=== PATIENT | male | born 1965 | race Caucasian/White ===

== ENCOUNTER → 2017-05-16 08:51 | Outpatient (CLI) | payer BC, SELFPAY ==
[2017-05-16 09:23] LABS: Basophils % 0.5 % (0.1-2.0); Eosinophils # 0.1 K/mm3 (0.0-0.4); Hematocrit 45.4 % (42.0-52.0); Hemoglobin 15.4 g/dL (14.1-18.0); Lymphocytes # 1.7 K/mm3 (0.7-4.5); Lymphocytes % 28.1 K/mm3 (10-50); Mean Corpuscular HGB Conc 33.8 g/dL (31.8-35.4); Mean Corpuscular Hemoglobin 30.1 pg (27.0-31.2); Mean Platelet Volume 6.9 fl (7.4-10.4); Monocytes # 0.4 K/mm3 (0.1-1.0); Monocytes % 7.3 % (1.7-9.3); Neutrophils # 3.7 K/mm3 (1.8-7.8); Platelet Count 270 K/mm3 (142-424); Red Blood Count 5.11 M/mm3 (4.60-6.20); Red Cell Distribution Width 12.6 % (11.5-17.5); White Blood Count 5.9 K/mm3 (4.8-10.8)
[2017-05-16 09:58] LABS: Alanine Aminotransferase 56 U/L (12-78); Albumin/Globulin Ratio 1.1 (1.1-1.8); Alkaline Phosphatase 116 U/L (46-116); Aspartate Amino Transferase 29 U/L (15-37); Bilirubin,Total 0.7 mg/dL (0.2-1.0); Blood Urea Nitrogen 12 mg/dL (7-18); Carbon Dioxide 26 mmol/L (21.0-32.0); Chloride 106 mmol/L (98-107); Chol/HDL Ratio 4.1 (1-3.5); Cholesterol 151 mg/dL (140-200); Creatinine,Serum 0.81 mg/dL (0.70-1.30); Estimated Glomerular Filt Rate 101 ml/min (>60); GFR (African American) 122 ML/MIN (>60); Globulin 3.5 gm/dl (1.3-3.2); Glucose 99 mg/dL (74-106); HDL Cholesterol 37 mg/dL (27-67); LDL Cholesterol 90 mg/dL (0-130); Sodium 141 mmol/L (136-145); Total Protein,Serum 7.5 gm/dL (6.4-8.2); Triglycerides 118 mg/dL (30-200); VLDL Cholesterol 24 mg/dL (0-40)
== END ==
PROVIDERS: Visit Provider Internal Medicine Adolescent Medicine
DX: R97.20 Elevated prostate specific antigen [PSA] (principal); Z12.5 Encounter for screening for malignant neoplasm of prostate; E78.00 Pure hypercholesterolemia, unspecified; I25.10 Atherosclerotic heart disease of native coronary artery without angina pectoris
CPT/HCPCS: 36415; 80053; 80061; 85025; G0103

== ENCOUNTER → 2017-10-03 07:21 | Outpatient (CLI) | payer BC, SELFPAY ==
[2017-10-03 07:48] LABS: Basophils % 0.6 % (0.1-2.0); Eosinophils # 0.1 K/mm3 (0.0-0.4); Eosinophils % 2.1 % (0.1-12.0); Hematocrit 46.9 % (42.0-52.0); Hemoglobin 15.9 g/dL (14.1-18.0); Lymphocytes # 1.7 K/mm3 (0.7-4.5); Lymphocytes % 26.3 K/mm3 (10-50); Mean Corpuscular HGB Conc 33.9 g/dL (31.8-35.4); Mean Corpuscular Hemoglobin 30.7 pg (27.0-31.2); Mean Corpuscular Volume 90.6 fl (80-94); Mean Platelet Volume 6.5 fl (7.4-10.4); Monocytes # 0.5 K/mm3 (0.1-1.0); Neutrophils # 4.1 K/mm3 (1.8-7.8); Platelet Count 295 K/mm3 (142-424); Red Blood Count 5.18 M/mm3 (4.60-6.20); Red Cell Distribution Width 12.8 % (11.5-17.5); White Blood Count 6.5 K/mm3 (4.8-10.8)
[2017-10-03 09:40] LABS: Anion Gap 7.4 mEq/L (5-15); Blood Urea Nitrogen 16 mg/dL (7-18); Calcium 9.4 mg/dL (8.5-10.1); Carbon Dioxide 32 mmol/L (21.0-32.0); Chloride 106 mmol/L (98-107); Chol/HDL Ratio 4.2 (1-3.5); Cholesterol 164 mg/dL (140-200); Creatinine,Serum 0.96 mg/dL (0.70-1.30); Estimated Glomerular Filt Rate 83 ml/min (>60); GFR (African American) 100 ML/MIN (>60); Glucose 97 mg/dL (74-106); HDL Cholesterol 39 mg/dL (27-67); LDL Cholesterol 97 mg/dL (0-130); Potassium 4.4 mmoL/L (3.5-5.1); Sodium 141 mmol/L (136-145); Triglycerides 140 mg/dL (30-200); VLDL Cholesterol 28 mg/dL (0-40)
== END ==
PROVIDERS: Visit Provider Internal Medicine Cardiovascular Disease
DX: R94.39 Abnormal result of other cardiovascular function study (principal)
CPT/HCPCS: 36415; 80048; 80061; 85025

== ENCOUNTER → 2017-11-22 07:56 | Outpatient (CLI) | payer BC, SELFPAY ==
--- NOTE | 2017-11-22 08:02 | MR_ITS ---
MR lumbar spine wo con, MR 3-d myelogram/MRCP HISTORY: PT states low back pain, RT leg pain, numbness and tingling X 8 months. ITS.REASON: ACUTE RIGHT-SIDED LOW BACK PAIN W/RIGHT-SIDED SCIATICA ORDERING PHYSICIAN: Sudhakar Aguilar MD PATIENT AGE: 52 years Comparison: None TECHNIQUE: Standard multiplanar multiecho sequences are performed without contrast. 3-D MIP and myelographic images are also rendered and reviewed FINDINGS: The spinal cord ends at the T12 level. T12-L1: Unremarkable. L1-L2: Small left foraminal disc protrusion with mild left lateral recess narrowing and left-sided foraminal narrowing. L2-L3: Degenerative disc disease with moderate concentric bulging disc with minimal left paracentral disc protrusion along with facet and ligamentum flavum hypertrophy causing bilateral lateral recess narrowing and moderate left-sided foraminal narrowing. The lateral recess narrowing is somewhat more prominent on the left. The bulging disc is abutting the anterior aspect of the L3 nerve roots greater on the left. Type I endplate changes are present posteriorly L3-L4: Mild degenerative disc disease with mild concentric bulging disc along with facet and ligamentum flavum hypertrophy with mild bilateral foraminal narrowing L4-L5: Mild facet and ligamentum hypertrophic change. L5-S1: Grade 1 spondylolytic spondylolisthesis with 7 mm anterolisthesis of L5 with bulging disc along with hypertrophic changes at the spondylitic areas. There is severe bilateral foraminal narrowing. No extruded herniated disc evident. IMPRESSION: 1. Multilevel lumbar spondylosis with degenerative disc disease, facet and ligamentum hypertrophy, and bulging disc with resultant foraminal and lateral recess narrowing. Please see above for detailed description at each level. 2. Moderate size bulging disc at L2-L3 with minimal broad-based left paracentral disc protrusion and moderate left-sided lateral recess and foraminal narrowing and mild right lateral recess and foraminal narrowing. 3. Grade 1 spondylolytic spondylolisthesis of L5 on S1 with severe bilateral foraminal narrowing
== END ==
PROVIDERS: Family Provider Internal Medicine Adolescent Medicine; PCP Internal Medicine Adolescent Medicine; Visit Provider Internal Medicine Adolescent Medicine
DX: M54.41 Lumbago with sciatica, right side (principal)
CPT/HCPCS: 72148; 76376

== ENCOUNTER 2018-06-06 08:30 | Outpatient (RCR) | payer BC, SELFPAY | END 2018-06-06 08:35 | disposition home or self-care (01) | LOC: PT 08:30 | PROVIDERS: Visit Provider Neurological Surgery | DX: M54.5 Low back pain (principal) | CPT/HCPCS: 97010; 97014; 97110; 97163; 97164; G0283 ==

== ENCOUNTER → 2018-10-18 07:07 | Outpatient (CLI) | payer BC, SELFPAY ==
[2018-10-18 08:01] LABS: Basophils % 0.6 % (0.1-2.0); Eosinophils # 0.1 K/mm3 (0.0-0.4); Eosinophils % 2.1 % (0.1-12.0); Hematocrit 44.6 % (42.0-52.0); Hemoglobin 15.3 g/dL (14.1-18.0); Lymphocytes % 33.6 % (10-50); Mean Corpuscular HGB Conc 34.3 g/dL (31.8-35.4); Mean Corpuscular Hemoglobin 31.4 pg (27.0-31.2); Mean Corpuscular Volume 91.6 fl (80-94); Mean Platelet Volume 6.6 fl (7.4-10.4); Monocytes # 0.5 K/mm3 (0.1-1.0); Neutrophils # 3.3 K/mm3 (1.8-7.8); Neutrophils % 55.7 % (37.0-80.0); Platelet Count 297 K/mm3 (142-424); Red Blood Count 4.87 M/mm3 (4.60-6.20); Red Cell Distribution Width 13.1 % (11.5-17.5); White Blood Count 5.8 K/mm3 (4.8-10.8)
[2018-10-18 08:13] LABS: Alanine Aminotransferase 51 U/L (12-78); Albumin Level 3.8 gm/dL (3.4-5.0); Alkaline Phosphatase 135 U/L (46-116); Anion Gap 11.5 mEq/L (5-15); Aspartate Amino Transferase 27 U/L (15-37); Bilirubin,Total 0.3 mg/dL (0.2-1.0); Blood Urea Nitrogen 13 mg/dL (7-18); Calcium 8.8 mg/dL (8.5-10.1); Carbon Dioxide 29 mmol/L (21.0-32.0); Chloride 105 mmol/L (98-107); Chol/HDL Ratio 4.2 (1-3.5); Cholesterol 137 mg/dL (140-200); Creatinine,Serum 1.03 mg/dL (0.70-1.30); Estimated Glomerular Filt Rate 76 ml/min (>60); GFR (African American) 92 ML/MIN (>60); Globulin 3.7 gm/dl (1.3-3.2); Glucose 96 mg/dL (74-106); HDL Cholesterol 33 mg/dL (27-67); LDL Cholesterol 79 mg/dL (0-130); Potassium 3.5 mmoL/L (3.5-5.1); Prostate Specific Ag, Diagnost 0.81 ng/mL (0.0-4.0); Sodium 142 mmol/L (136-145); Total Protein,Serum 7.5 gm/dL (6.4-8.2); Triglycerides 123 mg/dL (30-200); VLDL Cholesterol 25 mg/dL (0-40)
== END ==
PROVIDERS: Visit Provider Internal Medicine Adolescent Medicine
DX: E78.5 Hyperlipidemia, unspecified (principal); I25.10 Atherosclerotic heart disease of native coronary artery without angina pectoris; R97.20 Elevated prostate specific antigen [PSA]
CPT/HCPCS: 36415; 80053; 80061; 84153; 85025

== ENCOUNTER → 2019-10-03 08:06 | Outpatient (CLI) | payer BC, SELFPAY ==
[2019-10-03 08:45] LABS: Basophils # 0.1 K/mm3 (0-0.2); Basophils % 0.8 % (0.1-2.0); Eosinophils # 0.1 K/mm3 (0.0-0.4); Eosinophils % 1.7 % (0.1-12.0); Hematocrit 44.2 % (42.0-52.0); Hemoglobin 15.4 g/dL (14.1-18.0); Lymphocytes # 1.6 K/mm3 (0.7-4.5); Lymphocytes % 26.5 % (10-50); Mean Corpuscular HGB Conc 34.8 g/dL (31.8-35.4); Mean Corpuscular Volume 92.1 fl (80-94); Mean Platelet Volume 7.5 fl (7.4-10.4); Monocytes # 0.4 K/mm3 (0.1-1.0); Neutrophils # 3.9 K/mm3 (1.8-7.8); Platelet Count 252 K/mm3 (142-424); Red Cell Distribution Width 12.9 % (11.5-17.5)
[2019-10-03 09:38] LABS: Alanine Aminotransferase 32 U/L (12-78); Albumin Level 4.5 g/dl (3.5-5.0); Albumin/Globulin Ratio 1.6 (1.1-1.8); Alkaline Phosphatase 128 U/L (38-126); Anion Gap 14.1 mEq/L (5-15); Aspartate Amino Transferase 33 U/L (17-59); Blood Urea Nitrogen 17 mg/dl (9-20); Calcium 9.6 mg/dl (8.4-10.2); Carbon Dioxide 28 mmol/L (22.0-30.0); Chloride 102 mmol/L (98-107); Chol/HDL Ratio 3.7 (1-3.5); Cholesterol 163 mg/dl (140-200); Estimated Glomerular Filt Rate 102 ml/min (>60); GFR (African American) 123 ML/MIN (>60); Globulin 2.8 g/dL (1.3-3.2); Glucose 96 mg/dl (74-100); HDL Cholesterol 44 mg/dl (40-60); Potassium 4.1 mmoL/L (3.5-5.1); Sodium 140 mmol/L (136-145); Total Protein,Serum 7.3 g/dl (6.3-8.2); Triglycerides 185 mg/dl (30-150); VLDL Cholesterol 37 mg/dL (0-40)
[2019-10-03 09:49] LABS: Direct LDL Cholesterol 95.41 mg/dL (100-129)
[2019-10-03 10:08] LABS: Prostate Specific Ag, Diagnost 0.882 ng/ml (0.0-4.0)
== END ==
PROVIDERS: Visit Provider Internal Medicine Adolescent Medicine
DX: I25.10 Atherosclerotic heart disease of native coronary artery without angina pectoris (principal); R97.20 Elevated prostate specific antigen [PSA]
CPT/HCPCS: 36415; 80053; 80061; 84153; 85025

== ENCOUNTER → 2020-01-20 07:19 | Outpatient (CLI) | payer BC, SELFPAY ==
[2020-01-20 09:41] LABS: Chloride 104 mmol/L (98-107); Sodium 140 mmol/L (136-145)
[2020-01-20 09:42] LABS: Potassium 4.5 mmoL/L (3.5-5.1)
[2020-01-20 09:44] LABS: Alanine Aminotransferase 30 U/L (12-78); Albumin Level 4.6 g/dl (3.5-5.0); Albumin/Globulin Ratio 1.6 (1.1-1.8); Alkaline Phosphatase 118 U/L (38-126); Anion Gap 10.5 mEq/L (5-15); Aspartate Amino Transferase 32 U/L (17-59); Bilirubin,Total 0.3 mg/dl (0.2-1.3); Blood Urea Nitrogen 16 mg/dl (9-20); Calcium 9.5 mg/dl (8.4-10.2); Carbon Dioxide 30 mmol/L (22.0-30.0); Cholesterol 175 mg/dl (140-200); Estimated Glomerular Filt Rate 78 ml/min (>60); GFR (African American) 95 ML/MIN (>60); Globulin 2.8 g/dL (1.3-3.2); Glucose 95 mg/dl (74-100); Total Protein,Serum 7.4 g/dl (6.3-8.2); Triglycerides 139 mg/dl (30-150); VLDL Cholesterol 28 mg/dL (0-40)
[2020-01-20 09:45] LABS: Chol/HDL Ratio 3.9 (1-3.5); HDL Cholesterol 45 mg/dl (40-60)
[2020-01-20 09:56] LABS: Direct LDL Cholesterol 104.04 mg/dL (100-129)
== END ==
PROVIDERS: Visit Provider Internal Medicine Cardiovascular Disease
DX: E78.5 Hyperlipidemia, unspecified (principal)
CPT/HCPCS: 36415; 80053; 80061

== ENCOUNTER → 2020-09-28 13:40 | Outpatient (CLI) | payer BC, SELFPAY ==
--- NOTE | 2020-09-28 13:52 | MR_ITS ---
PROCEDURE: MR SHOULDER RT WO CON CLINICAL INDICATION: RT SHOULDER PAIN COMPARISON: No exams were available for comparison TECHNIQUE: Routine multiplanar multi echo sequences are performed without gadolinium enhancement. FINDINGS: Hypertrophic changes are present at the acromioclavicular joint. There is mild subacromial stenosis. Mild edema noted at the AC joint. There is thickening with increased T2 signal at the supraspinatus and infraspinatus tendons consistent with tendinopathy/tendinosis. Focal decreased T2 signal noted along the superior aspect of the supraspinatus tendon distally suggesting calcific tendinitis. The subscapularis and teres minor tendons are intact. There is some thickening of the subscapularis tendon distally. The bicipital tendon is in place. No obvious labral tear. There is increased T2 signal within the anterior aspect of the deltoid muscle/clavicular part. IMPRESSION: 1. Tendinopathy/tendinosis of the supraspinatus, infraspinatus, and subscapularis muscles. There is mild subacromial stenosis with hypertrophic changes of the acromioclavicular joint and suspected calcific tendinitis.. 2. No evidence of rotator cuff tear. 3. Edema within the clavicular part of the deltoid muscle. This could be seen with partial muscle tear. Please correlate with clinical findings. Dictated by: Hadley Cody MD 09/28/2020 18:15 Hadley Cody MD in [place] 09/28/2020 18:15
== END ==
PROVIDERS: PCP Internal Medicine Adolescent Medicine; Visit Provider Nurse Practitioner Family
DX: M25.511 Pain in right shoulder (principal); G89.11 Acute pain due to trauma
CPT/HCPCS: 73221

== ENCOUNTER 2020-11-29 08:00 | Outpatient (RCR) | payer BC, SELFPAY | END 2020-11-29 08:05 | disposition home or self-care (01) | LOC: OT 08:00 | PROVIDERS: Visit Provider Orthopaedic Surgery Sports Medicine | DX: M75.111 Incomplete rotator cuff tear or rupture of right shoulder, not specified as traumatic (principal); M75.31 Calcific tendinitis of right shoulder | CPT/HCPCS: 97014; 97110; 97164; 97166; 97530; G0283 ==

== ENCOUNTER → 2021-03-07 14:36 | Outpatient (CLI) | payer BC, SELFPAY | PROVIDERS: PCP Radiology Diagnostic Radiology; Visit Provider Nurse Practitioner | DX: Z20.822 Contact with and (suspected) exposure to COVID-19 (principal) | CPT/HCPCS: C9803; U0003; U0005 ==

== ENCOUNTER 2021-03-11 18:04 | Emergency (ER) | payer BC, SELFPAY ==
[2021-03-11 19:15] VITALS: BP 141/92; PULSE 83; RESP 18; TEMP 36.9; O2SAT 98; BMI 29.9
[2021-03-11 19:26] LABS: UTC Influenza A Antigen Negative (Negative); UTC Influenza B Antigen Negative (Negative)
--- NOTE | 2021-03-11 19:41 | HMH.EDUTC ---
[facility] [place] Disposition Clinical Impression: Viral syndrome Disposition: Home, Self-Care Condition on Discharge: Good Instructions: DI for Viral Syndrome, DI for Fever (Symptom) -- Adult Additional Instructions: *Monitor Temp, Over the counter Motrin or Tylenol as directed/as needed Tylenol every 4 hours and Motrin every 6 hours (as long as your family doctor has told you that you can take it) for fever or pain. and straight to ER if unable to lower temp less than 101.0 after medication given *Warm salt water gargles may help to soothe the throat *Throat Lozenges *Warm fluids like tea with honey may help to soothe the throat *Sleep elevated *Humidifier/Vaporizer *Flonase 2 sprays in each nostril daily but be aware that it may take 2-3 days before you notice improvement Follow up IMMEDIATELY for new or worsening symptoms or no Noticeable improvement over the next 48-72 hours. 911 for difficulty breathing or swallowing You were tested for today for COVID19 your test result should be back in the next 24-48 hours, you may check your results on the [facility] My Health Portal if you have trouble logging on you may call You was given a handout with instructions for Self Quarantine and Self isolation for while you wait on test results and what to do if they are positive If you are positive the Health Dept will be contacting you also Make sure to take your Vitamins Vit. C Vit D and Zinc if you can take them Prescriptions: Benzonatate [Benzonatate 100mg cap] 100 mg PO Q8HP PRN #15 cap PRN Reason: Cough Transmission Status: Pending to [facility] Fluticasone Propionate [Flonase 50mcg nasal spray 16gm] 1 spr NS DAILY #1 each Transmission Status: Pending to [facility] Referrals: Sudhakar Aguilar MD [Primary Care Provider] - As needed Forms: Work/School Release Time of Disposition: 19:51 Medical Decision Making - Leo Inquiry Pt receiving controlled substance: No Leo was queried for this patient: No Vital Signs: 03/11/21 19:15 Temperature 98.5 F Temperature Source Oral Pulse Rate [Right Brachial] 83 Respiratory Rate 18 Blood Pressure [Right Arm] 141/92 H Blood Pressure Mean [Right Arm] 108 Blood Pressure Source [Right Arm] Automatic Cuff Blood Pressure Position [Right Arm] Sitting 02 Sat by Pulse Oximetry 98 Oxygen Delivery Method Room Air - Lab Data Lab results reviewed: Yes: I reviewed the patient's lab results. Lab Results 03/11/21 19:17: Influenza Type A Ag Negative, Influenza Type B Ag Negative Orders (Tests/Meds): ORDERS Category Date Time Status Covid-19 Nasal PCR ([facility]) Routine Lab 03/11/21 19:20 Received [facility] [place] HPI - General Stated complaint: sore throat, headache,nasal drainage Time Seen by Provider: 03/11/21 19:41 Mode of Arrival: Ambulatory Source of Information: Patient Limitations: No Limitations Description of Symptoms (Recalled from Triage Doc. by RN): PATIENT C/O BODY ACHES, CHILLS, AND HEADACHE SINCE YESTERDAY HEENT Symptoms (Recalled from RN notes): Yes Resp Symptoms (Recalled from RN notes): No Skin Symptoms (Recalled from RN notes): No MS Symptoms (Recalled from RN notes): No Functional Status (Recalled from RN notes): WNL - History of Present Illness Provider Complaint: Patient states that he started feeling bad yesterday States that he has been having body aches, chills, drainage and cough State that he took some nyquil last night and it helped with the cough but today he has still been feeling achy and having some drainage so he came in to get checked State that he feels like he has the flu - Related Data Home Medications Medication Instructions Recorded Confirmed atorvastatin 80 mg tablet 80 mg PO DAILY #90 tab 07/27/18 02/02/20 gabapentin 300 mg capsule 300 mg PO DAILY #90 cap 07/27/18 02/02/20 hydrochlorothiazide 25 mg tablet 10 mg PO DAILY #90 tab 07/27/18 02/02/20 metoprolol succinate 25 mg 25 mg PO DAILY #30 tab 07/27/18 02/02/20 tablet,exten
[2021-03-11 19:50] VITALS: BP 141/92; PULSE 83; RESP 18; TEMP 36.9; O2SAT 98
== END 2021-03-11 19:55 | disposition home or self-care (01) ==
PROVIDERS: Emergency Provider Nurse Practitioner; PCP Internal Medicine Adolescent Medicine
DX: U07.1 COVID-19 (principal); B34.9 Viral infection, unspecified; I10 Essential (primary) hypertension; I25.10 Atherosclerotic heart disease of native coronary artery without angina pectoris; E78.5 Hyperlipidemia, unspecified; Z79.899 Other long term (current) drug therapy
CPT/HCPCS: 87804; 99202; C9803; G0463; U0003; U0005

== ENCOUNTER → 2022-05-10 08:29 | Outpatient (CLI) | payer BC, SELFPAY ==
[2022-05-10 09:02] LABS: Basophils # 0.1 K/mm3 (0-0.2); Eosinophils # 0.1 K/mm3 (0.0-0.4); Eosinophils % 1.7 % (0.1-12.0); Hematocrit 43.4 % (42.0-52.0); Hemoglobin 14.8 g/dL (14.1-18.0); Lymphocytes # 1.4 K/mm3 (0.7-4.5); Lymphocytes % 24.6 % (10-50); Mean Corpuscular HGB Conc 34.2 g/dL (31.8-35.4); Mean Corpuscular Hemoglobin 31.6 pg (27.0-31.2); Mean Corpuscular Volume 92.2 fl (80-94); Mean Platelet Volume 7.3 fl (7.4-10.4); Monocytes # 0.6 K/mm3 (0.1-1.0); Neutrophils # 3.6 K/mm3 (1.8-7.8); Neutrophils % 62.7 % (37.0-80.0); Platelet Count 257 K/mm3 (142-424); Red Cell Distribution Width 13.3 % (11.5-17.5); White Blood Count 5.7 K/mm3 (4.8-10.8)
[2022-05-10 09:43] LABS: NT Pro Brain Natriuretic Pep. 35.2 pg/mL (0-125)
[2022-05-10 09:44] LABS: Alanine Aminotransferase 32 U/L (12-78); Albumin Level 4.3 g/dl (3.5-5.0); Alkaline Phosphatase 135 U/L (38-126); Anion Gap 9.2 mEq/L (5-15); Aspartate Amino Transferase 33 U/L (17-59); Bilirubin,Direct 0.2 mg/dl (0.0-0.4); Bilirubin,Indirect 0.3 mg/dL (0.0-0.9); Bilirubin,Total 0.5 mg/dl (0.2-1.3); Bilirubin,Unconjugated 0.3 mg/dL (0.0-1.1); Blood Urea Nitrogen 15 mg/dl (9-20); Calcium 8.7 mg/dl (8.4-10.2); Carbon Dioxide 27 mmol/L (22.0-30.0); Chloride 106 mmol/L (98-107); Chol/HDL Ratio 3.5 (1-3.5); Cholesterol 124 mg/dl (140-200); Estimated Glomerular Filt Rate 88 ml/min (>60); GFR (African American) 106 ML/MIN (>60); Glucose 97 mg/dl (74-100); HDL Cholesterol 35 mg/dl (40-60); Potassium 4.2 mmoL/L (3.5-5.1); Sodium 138 mmol/L (136-145); Total Protein,Serum 6.8 g/dl (6.3-8.2); Triglycerides 97 mg/dl (30-150); VLDL Cholesterol 19 mg/dL (0-40)
[2022-05-10 09:55] LABS: Direct LDL Cholesterol 69.62 mg/dL (100-129)
[2022-05-10 10:02] LABS: Free T4 (Free Thyroxine) 0.76 ng/dl (0.78-2.19)
[2022-05-10 10:05] LABS: Thyroid Stimulating Hormone 1.15 uIU/mL (0.465-4.68)
== END ==
PROVIDERS: PCP Internal Medicine Adolescent Medicine; Visit Provider Internal Medicine Cardiovascular Disease
DX: R06.00 Dyspnea, unspecified (principal); I25.10 Atherosclerotic heart disease of native coronary artery without angina pectoris; R00.1 Bradycardia, unspecified; I11.0 Hypertensive heart disease with heart failure; I50.9 Heart failure, unspecified; I63.9 Cerebral infarction, unspecified; E11.9 Type 2 diabetes mellitus without complications; R06.83 Snoring; G47.9 Sleep disorder, unspecified; R40.0 Somnolence
CPT/HCPCS: 36415; 80048; 80061; 80076; 83880; 84439; 84443; 85025; G0399

== ENCOUNTER → 2022-05-14 06:57 | Outpatient (CLI) | payer BC, SELFPAY ==
--- NOTE | 2022-05-14 06:59 | NM_ITS ---
APPROVED REPORT Exam: Nuclear Stress Test Indication: CAD, 2 STENTS, HTN, HYPERLIPIDEMIA, FM HX, SOB Ht: 5 ft 8 in Wt: 210 lbs HR: 56 bpm BP: 135/82 mmHg BSA: 2.09 m2 TID: 0.96 BMI: 31.9 History: CAD, 2 STENTS, HTN, HYPERLIPIDEMIA, FM HX, SOB Procedure: Patient exercised on Abdirizak protocol 11:00 minutes and sec, resting heart rate 56 bpm, resting blood pressure 135/82 mmHg, with exercise maximum heart rate achived was 135 bpm which is 109 % of the maximum predicted heart rate and blood pressure was 171/83 mmHg. Test was stopped due to FATIGUE. Patient denied any complaint of chest pain. Patient has Good exercise capacity, achieved 12.8 METs of workload on treadmill, the blood pressure response to exercise was Adequate. Electrocardiogram Resting electrocardiogram shows sinus rhythm, with exercise there is 1.[address] segment depression noted from the baseline EKG. The EKG portion of the exercise Myoview is positive for ischemia. Cardiac Stress and Resting SPECT Images: Cardiac Stress and Resting SPECT images were obtained using technetium 99m Myoview 29.8 mCi stress and 10.88 mCi at rest. Gated SPECT analysis of segmental wall motion and calculation of the ejection fraction also done. Prone images were also obtained. Cardiac prone images show uniform myocardial activity without segmental perfusion abnormality, computer derived ejection fraction is 56% with no regional wall motion abnormality, right ventricle is normal size and contractility. Conclusion: 1. The EKG portion of the exercise Myoview is positive for ischemia, patient has good exercise capacity achieved 12.8 METs of workload on treadmill, the blood pressure response to exercise was adequate, there was no exercise-induced chest discomfort. 2. No scintigraphic evidence of reversible ischemia seen, computer derived ejection fraction is 56% with no regional wall motion abnormality, right ventricle is normal size and contractility. Electronically signed by : Brendan John MD 05/14/2022 14:13:49
--- NOTE | 2022-05-14 06:59 | CA_ITS ---
APPROVED REPORT Exam: Exercise Treadmill Technologist: Theresa Keyes, Ht: 5 ft 8 in Wt: 212 lbs BSA: 2.10 m2 HR: 56 bpm BP: 135/82 mmHg Rhythm: NSR with inferior STT abnormalities Medical History Medical History: HTN Medications: Lisinopril,,,,, Atorvastatin,,,,, Metoprolol Succinate,,,,, HCTZ,,,,, Vit D3,,,,, Vit C,,,,, Zinc,,,,, Viagra,,,,, NitrogGLYCERIN,,,,, ICOSAPENT ethyl,,,,, Cardiac Risk Factors: HTN, FHX of CAD Stress Test Details Test: Tara HR Resting HR: 59 bpm Max Heart Rate (APMHR): 165.194129 bpm Max HR Achieved: 154 bpm Target HR (85% APMHR): 140.264128 bpm % of APMHR: 93.33 Recovery HR: 135 bpm BP Resting BP: 126/81 mmHg Max BP: 169/82 mmHg Recovery BP: 171.0/83.0 mmHg ECG Resting ECG: NSR with inferior STT abnormalities Clinical Reason for Termination: Dyspnea Exercise duration: 11:02 min Highest Stage Achieved: Exercise capacity: 12.8 METs Stress ECG Conclusion During tara protocol pt walked 11 minutes, 12.8 METS. No CP noted. Ventricular bigeminy in all stages. 1.5-2.0mm horizontal ST segment depression laterally that resolved quickly in recovery. Abnormal stress. Test Summary REST . . . . . . . Sitting REST . . . . . . . Standing REST 36:36 0.0 0.0 59 . 126/ 81 . . Stage 1 01:00 10.0 1.7 80 . . . . Stage 1 02:00 10.0 1.7 92 . . . . Stage 1 03:00 10.0 1.7 95 . 141/ 85 . . Stage 2 01:00 12.0 2.5 102 . . . . Stage 2 02:00 12.0 2.5 101 . . . . Stage 2 03:00 12.0 2.5 108 . 150/ 90 . . Stage 3 01:00 14.0 3.4 116 . . . . Stage 3 02:00 14.0 3.4 118 . . . . Stage 3 03:00 14.0 3.4 122 . 163/ 90 . . Stage 4 01:00 16.0 4.2 140 . . . . Stage 4 02:00 16.0 4.2 152 . . . . Stage 4 02:02 16.0 4.2 152 . . . Stop exercise at 11:02 RECOVERY 01:00 0.0 0.0 133 . . . . RECOVERY 02:00 0.0 0.0 112 . . . . RECOVERY 03:00 0.0 0.0 95 . . . . RECOVERY 04:00 0.0 0.0 87 . . . . RECOVERY 05:00 0.0 0.0 87 . 169/ 82 . . RECOVERY 05:09 0.0 0.0 86 . 169/ 82 . . Electronically signed by : Brendan John MD 05/14/2022 14:07:16
--- NOTE | 2022-05-14 06:59 | CA_ITS ---
APPROVED REPORT EXAM: Comprehensive 2D, Doppler, and color-flow Echocardiogram Button Pusher: Roseline Schroeder CRT Ht: 5 ft 8 in Wt: 212lbs BSA: 2.10 BP: 130/72 mmHg Indications: Shortness of Breath, CAD, Hypertension/HDD, BRADYCARDIA 2D Dimensions LVOT 1.76 cm (M/F) 1.5-2.5 LA Volume 46.40 mL LA Volume Index 22.10 mL/m2 (M/F) 16-34 M-Mode Dimensions RVDd 2.69 cm (0.9-2.6) LA Diam 3.68 cm (1.9-4.0) LVDd 4.39 cm (3.5-5.7) Ao Diam 3.53 cm (2.0-3.7) LVDs 2.76 cm (3.5-5.7) IVSd 1.67 cm (0.6-1.1) PWd 0.80 cm (0.6-1.1) EF (Teich) 67.30% FS 37.10% EDV (Teich) 87.20 mL TAPSE 2.14 (<1.7) ESV (Teich) 28.50 mL LV Diastology E Decel Time 197.00 (160-240 msec) E/A Ratio 0.8 MED E' 6.20 (< 7 cm/sec) MED A' 11.70 cm/s E'/MED E' Ratio 10.85 (>14) LAT E' 8.40 (<10 cm/sec) LAT A' 7.90 cm/s E/LAT E' Ratio 8.01 (>14) Aortic Valve AO Peak GR. 11.10 mmHg Mitral Valve MV E Max Jaydon. 67.00 (40-130 cm/s) MV A Velocity 84.00 (40-130 cm/s) E/A Ratio 0.80 MV Decel. Time 197.00 (160-240 ms) MV PHT 58.00 ms Pulmonary Valve PV Peak Velocity 138.00 (50-150 cm/s) Tricuspid Valve TR P. Velocity 257.00 cm/s RAP Estimate 10.00 mmHg RVSP 36.50 mmHg Left Ventricle Left atrium is mildly enlarged, left ventricle is normal size mild concentric left ventricular hypertrophy, estimated ejection fraction 55% with no regional wall motion abnormality, grade 1 diastolic dysfunction seen without tissue Doppler evidence of late left atrial pressure. Right Ventricle Right atrium and right ventricle are normal size and contractility. Aortic Valve Aortic valve is minimally thickened and fibrosed there is no aortic stenosis or aortic insufficiency. Mitral Valve Mitral valve is grossly normal, there is trace mitral regurgitation. Tricuspid Valve Tricuspid valve grossly normal, there is trace tricuspid regurgitation, tricuspid regurgitation jet velocity is inadequate for calculation of the right ventricular systolic pressure. Pulmonic Valve Pulmonic valve is poorly visualized. Great Vessels Aortic root is normal size. Inferior vena cava is poorly visualized. Pericardium No significant pericardial effusion noted. Conclusion 1. Mildly enlarged left atrium, normal left ventricular size, mild concentric left ventricular hypertrophy, estimated ejection fraction 55% with no regional wall motion abnormality, grade 1 diastolic dysfunction seen without tissue Doppler evidence of late left atrial pressure. 2. Trace mitral and tricuspid regurgitation. 3. No significant pericardial effusion noted. 4. Inferior vena cava is poorly visualized. Electronically signed by : Brendan John MD 05/14/2022 20:41:57
== END ==
PROVIDERS: PCP Internal Medicine Adolescent Medicine; Visit Provider Internal Medicine Cardiovascular Disease
DX: I25.10 Atherosclerotic heart disease of native coronary artery without angina pectoris (principal); I10 Essential (primary) hypertension; R00.1 Bradycardia, unspecified; G47.9 Sleep disorder, unspecified
CPT/HCPCS: 78452; 93017; 93306; A9502

== ENCOUNTER → 2022-10-31 16:24 | Outpatient (CLI) | payer BC, SELFPAY ==
--- NOTE | 2022-10-31 16:27 | XR_ITS ---
PROCEDURE INFORMATION: Exam: XR Left Knee Exam date and time: 10/31/2022 4:32 PM Age: 56 years old Clinical indication: Pain; Knee; Left; Additional info: Knee pain since last week , no known injury TECHNIQUE: Imaging protocol: Radiologic exam of the left knee. Views: 3 views. COMPARISON: No relevant prior studies available. FINDINGS: Bones/joints: No acute fracture or dislocation. Bipartite patella. Joint spaces preserved. No effusion. Soft tissues: 4 mm round radiopaque foreign body within the soft tissues of the medial/posterior mid thigh. IMPRESSION: No acute osseous abnormality.
== END ==
PROVIDERS: PCP Internal Medicine Adolescent Medicine; Visit Provider Nurse Practitioner Family
DX: M25.562 Pain in left knee (principal)
CPT/HCPCS: 73562

== ENCOUNTER 2022-12-20 17:30 | Outpatient (RCR) | payer BC, SELFPAY ==
--- NOTE | 2022-11-13 17:41 | HMH.PTOPEV ---
PT Outpatient Evaluation Rehab PT Outpatient Evaluation Start: 11/13/22 17:22 Freq: Status: Active Protocol: Document 11/13/22 17:23 SHE (Rec: 11/13/22 17:41 SHE [id number]) E-signed By Carlos Blanton, PT Outpatient Therapy Subjective History Subjective History Patient is a 56 year old male presenting to outpatient PT with reports of L knee pain starting approximately 3 months ago that has progressively gotten worse. Patient reports L knee pain initially started after and episode of jogging. Most recent imaging negative. Comorbidities include hx of HTN, HL, stent x 2 and LS fusion (4 years). New diagnosis of cancer in past 12 No months? Chief Complaint Pain,Clicks,Weakness Symptom Type Throb Symptoms Relieved By Rest/Positioning Symptoms Aggravated By Standing,Physical Activity, Walking Prior Functional Limitations None Current Functional Limitations Housework,Standing,Squatting, Recreation Activity,Walking, Stairs Symptom Description Constant but Variable Level of pain today (0-10) 1 Pain scale - at its best (0-10) 1 Pain scale - at its worst (0-10) 9 Hip/Knee Eval Gait Observation General Gait Pattern Observation Antalgic Gait,Decrease Weight Bear (L) Assistive Device Assistive Devices None / NA Palpation Tenderness right Knee Palpation Finding Tenderness Knee Palpation Overall Comment MJL, pes anserene 3/4 MMT left Hip Flexion Strength Grade 4- Good- Hip Abduction Strength Grade 4 Good Hip Adduction Strength Grade 4 Good Hip Extension Strength Grade 4- Good- Hip External Rotation Strength Grade 4 Good Hip Internal Rotation Strength Grade 4 Good Knee Extension Strength Grade 4 Good Knee Flexion Strength Grade 5 Normal ROM Hip ROM Reason Not Measured Within Functional Limits Knee ROM Reason Not Measured Within Functional Limits Special Tests Hip Elias Test Positive Left Albino Test Positive Martinez 90/90 Test (PCL) Negative Left Knee Anterior Rambo Test Negative Left Knee Pivot Shift Test Negative Left Knee Valgus Stress Test Negative Left Knee Varus Stress Test Negative Left Knee Andrzej Test Negative Left
== END 2022-12-20 17:35 | disposition home or self-care (01) ==
LOC: PT 17:30
PROVIDERS: PCP Internal Medicine Adolescent Medicine; Visit Provider Nurse Practitioner Family
DX: M25.562 Pain in left knee (principal)
CPT/HCPCS: 97014; 97016; 97110; 97163; 97164; 97530; G0283

== ENCOUNTER 2023-04-29 08:40 | Outpatient (CLI) | payer BC, SELFPAY ==
[2023-04-29 08:59] LABS: Basophils % 0.6 % (0.1-2.0); Eosinophils # 0.1 K/mm3 (0.0-0.4); Eosinophils % 1.8 % (0.1-12.0); Hematocrit 47.3 % (42.0-52.0); Lymphocytes % 28.5 % (10-50); Mean Corpuscular HGB Conc 33.8 g/dL (31.8-35.4); Mean Corpuscular Hemoglobin 32.3 pg (27.0-31.2); Mean Corpuscular Volume 95.5 fl (80-94); Mean Platelet Volume 7.3 fl (7.4-10.4); Monocytes # 0.5 K/mm3 (0.1-1.0); Monocytes % 7.1 % (1.7-9.3); Neutrophils # 4.2 K/mm3 (1.8-7.8); Neutrophils % 61.9 % (37.0-80.0); Platelet Count 249 K/mm3 (142-424); Red Blood Count 4.95 M/mm3 (4.60-6.20); Red Cell Distribution Width 12.7 % (11.5-17.5); White Blood Count 6.8 K/mm3 (4.8-10.8)
[2023-04-29 09:47] LABS: Chloride 104 mmol/L (98-107)
[2023-04-29 09:48] LABS: Sodium 137 mmol/L (136-145)
[2023-04-29 09:50] LABS: Alanine Aminotransferase 33 U/L (12-78); Albumin Level 4.4 g/dl (3.5-5.0); Albumin/Globulin Ratio 1.6 (1.1-1.8); Alkaline Phosphatase 140 U/L (38-126); Aspartate Amino Transferase 34 U/L (17-59); Bilirubin,Total 0.6 mg/dl (0.2-1.3); Blood Urea Nitrogen 12 mg/dl (9-20); Carbon Dioxide 30 mmol/L (22.0-30.0); Estimated Glomerular Filt Rate 87 ml/min (>60); GFR (African American) 106 ML/MIN (>60); Globulin 2.7 g/dL (1.3-3.2); Total Protein,Serum 7.1 g/dl (6.3-8.2)
[2023-04-29 09:51] LABS: Calcium 9.5 mg/dl (8.4-10.2); Cholesterol 135 mg/dl (140-200); Glucose 102 mg/dl (74-100); HDL Cholesterol 34 mg/dl (40-60); Triglycerides 85 mg/dl (30-150); VLDL Cholesterol 17 mg/dL (0-40)
[2023-04-29 10:10] LABS: Direct LDL Cholesterol 76.64 mg/dL (100-129)
[2023-04-29 11:25] LABS: Hemoglobin A1C 5.5 % (4.0-6.0)
== END 2023-04-29 23:59 ==
LOC: LAB 08:41
PROVIDERS: PCP Internal Medicine Adolescent Medicine; Visit Provider Internal Medicine Adolescent Medicine
DX: I25.10 Atherosclerotic heart disease of native coronary artery without angina pectoris (principal); I10 Essential (primary) hypertension; R97.20 Elevated prostate specific antigen [PSA]
CPT/HCPCS: 36415; 80053; 80061; 83036; 84153; 85025

== ENCOUNTER 2023-07-10 14:19 | Outpatient (POV) | payer BC, SELFPAY | END 2023-07-10 23:59 | disposition home or self-care (01) | LOC: SC 14:19 | PROVIDERS: Visit Provider Specialist/Technologist | DX: Z00.00 Encounter for general adult medical examination without abnormal findings (principal) ==

== ENCOUNTER 2024-02-17 18:33 | Emergency (ER) | payer BC, SELFPAY ==
[2024-02-17 20:05] VITALS: BP 157/82; PULSE 71; RESP 18; TEMP 37.1; O2SAT 96; BMI 31.3
[2024-02-17 20:27] LABS: UTC Influenza A Antigen Negative (Negative); UTC Influenza B Antigen Negative (Negative)
--- NOTE | 2024-02-17 20:33 | ED_ITS ---
Discharge Plan Disposition Patient Disposition: Home, Self-Care Condition: Good Prescriptions Prescriptions: No Action metoprolol succinate 25 mg tablet extended release 24 hr 25 mg PO DAILY Qty: 30 atorvastatin 80 mg tablet 80 mg PO DAILY Qty: 90 hydrochlorothiazide 25 mg tablet 25 mg PO DAILY Qty: 90 aspirin [Adult Low Dose Aspirin] 81 mg tablet,delayed release (DR/EC) 81 mg PO DAILY Qty: 30 2RF icosapent ethyl 1 gram capsule 1 g PO ONCE lisinopril 20 mg tablet 20 mg PO DAILY peg 3350-electrolytes [GaviLyte-G] 236-22.74-6.74 -5.86 gram recon soln 240 ml PO Q10M Qty: 4000 0RF Rx Instructions: follow mailed instructions. Pharmacy may substitute if needed. ezetimibe 10 mg tablet 10 mg PO DAILY Referrals Follow up/Referrals: Sudhakar Aguilar MD [Primary Care Provider] - See instructions Activity Restrictions/Add. Instructions Additional Instructions/Restrictions: *Monitor Temp, Over the counter Motrin or Tylenol as directed/as needed Tylenol every 4 hours and Motrin every 6 hours (as long as your family doctor has told you that you can take it) for fever or pain. and straight to ER if unable to lower temp less than 101.0 after medication given *Warm salt water gargles may help to soothe the throat *Throat Lozenges? *Warm fluids like tea with honey may help to soothe the throat? *Sleep elevated *Humidifier/Vaporizer Rest and plenty of fluids Follow up IMMEDIATELY for new or worsening symptoms or no Noticeable improvement over the next 48-72 hours. 911 for difficulty breathing or swallowing Clinical Impressions Clinical Impression: Viral syndrome Stand Alone Forms Stand Alone Forms: Work/School Release Instructions Patient Instructions: DI for Viral Syndrome Print Language Print Language: Grenadian Discharge ED Provider: Tracy Puga [facility] [place] HPI General Stated complaint: body aches diarrhea destinee Mode of Arrival: Ambulatory Source of Information: Patient Limitations: No Limitations Time Seen by Provider: 02/17/24 20:33 Description of Symptoms (Recalled from Triage Doc. by RN): PATIENT C/O HEADACHE, COUGH, RUNNY NOSE AND BODY ACHES. PATIENT STATES HIS RECENTLY HAD THE FLU HEENT Symptoms (Recalled from RN notes): Yes Resp Symptoms (Recalled from RN notes): Yes Skin Symptoms (Recalled from RN notes): No MS Symptoms (Recalled from RN notes): No Functional Status (Recalled from RN notes): WNL History of Present Illness Provider Complaint: Patient states that his currently has the flu and he started with symptoms today States that he has been feeling achy, headache cough and runny nose so he came in to get tested Related Data Home Medications ?Medication ?Instructions ?Recorded ?Confirmed atorvastatin 80 mg tablet 80 mg PO DAILY Cholesterol #90 tabs 07/27/18 02/17/24 metoprolol succinate 25 mg 25 mg PO DAILY blood pressure #30 07/27/18 02/17/24 tablet,extended release 24 hr tabs hydrochlorothiazide 25 mg tablet 25 mg PO DAILY bp #90 tabs 09/26/22 02/17/24 lisinopril 20 mg tablet 20 mg PO DAILY 09/26/22 02/17/24 icosapent ethyl 1 gram capsule 1 g PO ONCE 06/24/23 02/17/24 ezetimibe 10 mg tablet 10 mg PO DAILY 02/17/24 02/17/24 Previous Rx's ?Medication ?Instructions ?Recorded aspirin 81 mg tablet,delayed 81 mg PO DAILY #30 tabs 11/22/22 release (Adult Low Dose Aspirin) peg 3350-electrolytes 236 240 ml PO Q10M bowel prep #4,000 mL 06/24/23 gram-22.74 gram-6.74 gram-5.86 gram solution (GaviLyte-G) Allergies Allergy/AdvReac Type Severity Reaction Status Date / Time No Known Allergies Allergy Verified 06/24/23 09:29 Worker's Comp Is this a Worker's Comp case?: No [facility] Disclaimer: The information contained in this section may have been updated after the patient was seen, as this information can be updated by other users. Medical History Hearing loss Epistaxis Impacted cerumen LISA (obstructive sleep apnea) mild to moderate positional LISA, CPAP compliance improved Hyperlactatemia HTN (hypertension) Active follow-up with [facility] cardiology CAD (coronary artery disease) Surgical History History of heart artery stent History of cardiac cath Family History Mother Heart attack Coronary artery disease Hypertension Father Heart attack Coronary artery disease Hypertension Stroke Social History Smoking Status: Never smoker alcohol intake: current alcohol intake frequency: holidays/special occasions only substance use type: denies use current occupational status: employed Travel in the last 8 weeks: None caffeine: Yes Have you lived/traveled outside US in past 30 days?: No Contact w/someone who lives/traveled outside US past 30 days?: No Exposure to someone with infectious disease in past 14 days?: No Do you have a fever (greater than 100.4 F or 38 C)?: No Have you tested positive for COVID-19: No Exposed to someone with COVID-19 in past 14 days?: No Do you have a sore throat?: No Do you have a cough?: No Do you have any weakness?: Yes Do you have any diarrhea?: Yes Are you experiencing any unusual bleeding?: No Do you have any muscle aches/pain?: Yes Do you have any abdominal pain?: No Are you experiencing loss of taste or smell?: No ROS Obtained: Yes All systems reviewed & no additional complaints except as documented and Yes Systems reviewed as appropriate & no additional complaints except as documented Constitutional Constitutional: Reports system reviewed and no additional complaints, except as documented, Reports as per HPI, Reports body ache, Reports chills and Reports headache(s) ENT Ears, Nose, Mouth, and Throat: Reports system reviewed and no additional complaints, except as documented, Reports as per HPI, Reports headache(s), Reports nasal congestion and Reports nasal discharge Cardiovascular Cardiovascular: Reports system reviewed and no additional complaints, except as documented and Reports as per HPI Respiratory Respiratory: Reports system reviewed and no additional complaints, except as documented, Reports as per HPI and Reports cough Gastrointestinal Gastrointestingal: Reports system reviewed and no additional complaints, except as documented and as per HPI Neurologic Neurologic: Reports headache(s) Physical Exam General General appearance: alert and in no apparent distress Expanded ENT Exam Nose exam: Absent sinus tenderness Throat exam: Present normal inspection Respiratory Respiratory exam: Present normal lung sounds bilaterally; Absent respiratory distress or wheezes Cardiovascular Cardiovascular exam: Present regular rate, normal rhythm and normal heart sounds Abdominal Exam Abdominal exam: Present soft and normal bowel sounds; Absent distention or te nderness Neurological Exam Neurological exam: Present alert, oriented X3 and normal gait Medical Decision Making Medical Records Screening: Per USPSTF and CDC recommendations, given the prevalence of disease in our region, it is our hospital?s policy to screen for HIV and viral Hepatitis for all patients aged 18 and over and those with ongoing risk factors. Leo Inquiry Pt receiving controlled substance: No Leo was queried for this patient: No Vital Signs: 02/17/24 20:05 Temperature 98.7 F Temperature Source Oral Pulse Rate [Left Brachial] 71 Respiratory Rate 18 Blood Pressure [Left Arm] 157/82 H Blood Pressure Mean [Left Arm] 107 Blood Pressure Source [Left Arm] Automatic Cuff Blood Pressure Position [Left Arm] Sitting 02 Sat by Pulse Oximetry 96 Oxygen Delivery Method Room Air Lab Data Lab results reviewed: Yes I reviewed the patient's lab results. Lab Results 02/17/24 20:08: Influenza Type A Ag Negative, Influenza Type B Ag Negative
[2024-02-17 20:40] VITALS: BP 157/82; PULSE 71; RESP 18; TEMP 37.1; O2SAT 96
== END 2024-02-17 20:43 | disposition home or self-care (01) ==
PROVIDERS: Emergency Provider Nurse Practitioner; PCP Internal Medicine Adolescent Medicine
DX: B34.9 Viral infection, unspecified (principal)
CPT/HCPCS: 87804; 99213; G0381

== ENCOUNTER 2024-05-23 19:28 | Emergency (ER) | payer BC, SELFPAY ==
[2024-05-23 19:36] VITALS: BP 160/95; PULSE 72; RESP 18; TEMP 36.7; O2SAT 97; BMI 32.8
--- NOTE | 2024-05-23 19:43 | CT_ITS ---
PROCEDURE INFORMATION: Exam: CT Abdomen And Pelvis Without Contrast Exam date and time: 05/23/2024 7:52 PM Age: 58 years old Clinical indication: Abdominal pain; Flank; Right; Additional info: Right [id number] TECHNIQUE: Imaging protocol: Computed tomography of the abdomen and pelvis without contrast. Total images: 328 Radiation optimization: All CT scans at this facility use at least one of these dose optimization techniques: automated exposure control; mA and/or kV adjustment per patient size (includes targeted exams where dose is matched to clinical indication); or iterative reconstruction. COMPARISON: SPLUMBWO MR lumbar spine wo con 11/22/2017 8:13 AM FINDINGS: Lungs: Calcified right lower lobe granuloma. Minor lingular atelectasis or scarring. Heart: Normal heart size. Coronary arteries: Extensive coronary artery calcifications. Liver: 3 cm oval mass in the left hepatic lobe, axial image 26 series 3. Otherwise, unremarkable liver. Gallbladder and biliary ducts: Normal. No calcified stones. No ductal dilation. Pancreas: Normal. No ductal dilation. Spleen: Calcified splenic granuloma. No splenomegaly. Adrenal glands: Normal. No mass. Kidneys and ureters: No hydronephrosis, nephrolithiasis, or discrete renal mass. No ureteral stones. Mild bilateral perinephric fat stranding. Stomach and bowel: Moderate gastric distension with recently ingested contents. Unremarkable duodenum. No ileus or bowel obstruction. Unremarkable small bowel. Mild scattered colonic diverticulosis without acute diverticulitis. Unremarkable rectum. Appendix: Normal appendix. Intraperitoneal space: Unremarkable. No free air. No significant fluid collection. Vasculature: Mild atherosclerotic vascular disease. Nonaneurysmal abdominal aorta. Lymph nodes: Calcified right hilar and subcarinal lymph nodes. Small benign bilateral inguinal lymph nodes. Urinary bladder: Unremarkable as visualized. Reproductive: Mild prostatomegaly. Bones/joints: Bilateral posterior fusion hardware L5-S1. Bilateral L5 spondylolysis. Grade 1 anterior spondylolisthesis L5-S1. Moderate to severe multilevel degenerative changes of the lumbar spine. [id number] multilevel degenerative changes of the lower thoracic spine. No acute osseous abnormality. Soft tissues: Tiny fat containing umbilical hernia. IMPRESSION: 1. No nephrolithiasis or obstructive uropathy. 2. Indeterminate 3 cm left hepatic mass. Recommend follow-up nonemergent liver MRI or triphasic liver CT. 3. Mild colonic diverticulosis without acute diverticulitis. 4. Additional chronic and incidental findings.
--- NOTE | 2024-05-23 19:44 | XR_ITS ---
PROCEDURE INFORMATION: Exam: XR Chest Exam date and time: 05/23/2024 7:58 PM Age: 58 years old Clinical indication: Shortness of breath; Additional info: Short of breath TECHNIQUE: Imaging protocol: Radiologic exam of the chest. Views: 1 view. Total images: 1 COMPARISON: CT ABDOMEN PELVIS WO CON 05/23/2024 7:52 PM FINDINGS: Lungs: Calcified right pulmonary granuloma. Calcified right hilar lymph nodes. No acute infiltrate, airspace consolidation or vascular congestion. No pulmonary edema. Pleural spaces: Unremarkable. No pleural effusion. No pneumothorax. Heart/Mediastinum: Unremarkable. No cardiomegaly. No mediastinal widening or hilar enlargement. Bones/joints: Unremarkable. Other findings: Lordotic positioning. IMPRESSION: 1. No radiographically acute cardiopulmonary process. 2. Remote calcified granulomatous disease.
--- NOTE | 2024-05-23 20:03 | ED_ITS ---
<Statement entered by Antonette Dye DO - 05/24/24 00:22> I was consulted by the GLEN, and we discussed the complexity of the problems being addressed. I approved the treatment and management plan for this patient's care in the emergency department, thus performing a substantive portion of the medical decision making. Labs independently interpreted by myself demonstrate reassuring CBC with no significant leukocytosis or anemia, chemistry demonstrates mildly elevated CO2 but otherwise reassuring with normal kidney function. Urinalysis is clear without concerns for infection. I independently interpreted CT scan and chest x-ray which was obtained prior to radiology read and I did not see any obvious ureterolithiasis or hydronephrosis, no obvious focal consolidation concerning for pneumonia. Please see radiology read for final interpretation. Patient did have per radiology read and indeterminate 3 cm hepatic mass, mild colonic diverticulosis. They also noted remote calcified granulomatous disease. Patient notified of findings and given instructions for follow-up with primary care for further evaluation and management. It was felt he likely had musculoskeletal pain at this time. Strict return precautions given at time of discharge as well as instructions for supportive management. Antonette Dye DO Discharge Plan Disposition Chief Complaint: PAIN Prescriptions Prescriptions: No Action metoprolol succinate 25 mg tablet extended release 24 hr 25 mg PO DAILY Qty: 30 atorvastatin 80 mg tablet 80 mg PO DAILY Qty: 90 hydrochlorothiazide 25 mg tablet 25 mg PO DAILY Qty: 90 aspirin [Adult Low Dose Aspirin] 81 mg tablet,delayed release (DR/EC) 81 mg PO DAILY Qty: 30 2RF icosapent ethyl 1 gram capsule 1 g PO ONCE lisinopril 20 mg tablet 20 mg PO DAILY peg 3350-electrolytes [GaviLyte-G] 236-22.74-6.74 -5.86 gram recon soln 240 ml PO Q10M Qty: 4000 0RF Rx Instructions: follow mailed instructions. Pharmacy may substitute if needed. ezetimibe 10 mg tablet 10 mg PO DAILY Referrals Follow up/Referrals: Sudhakar Aguilar MD [Primary Care Provider] - See instructions Print Language Print Language: Kinyarwanda Discharge ED Provider: Antonette Dye General Adult HPI General Chief complaint: PAIN Stated complaint: lower back pain Time Seen by Provider: 05/23/24 19:36 Mode of Arrival: Ambulatory Source of Information: Patient Description of Symptoms (Recalled from ER Triage Doc. by RN): pt reports right sided flank pain that began 4 weeks ago that is worse with activity such as walking up and down stairs. History of Present Illness HPI narrative: 58-year-old male presents to the ED today for complaint of right flank pain. This has been going on for the past 4 weeks. He says the last week the pain has worsened. He says going up and down stairs makes the pain worse. 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 He has had no fever no nausea or vomiting no bowel changes. He has taken no meds for this. He has no kidney issues. He does have pain with a cough. Patient takes medication for hypertension and high cholesterol. He has had no known injury Related Data Home Medications ?Medication ?Instructions ?Recorded ?Confirmed atorvastatin 80 mg tablet 80 mg PO DAILY Cholesterol #90 tabs 07/27/18 02/17/24 metoprolol succinate 25 mg 25 mg PO DAILY blood pressure #30 07/27/18 02/17/24 tablet,extended release 24 hr tabs hydrochlorothiazide 25 mg tablet 25 mg PO DAILY bp #90 tabs 09/26/22 02/17/24 lisinopril 20 mg tablet 20 mg PO DAILY 09/26/22 02/17/24 icosapent ethyl 1 gram capsule 1 g PO ONCE 06/24/23 02/17/24 ezetimibe 10 mg tablet 10 mg PO DAILY 02/17/24 02/17/24 Previous Rx's ?Medication ?Instructions ?Recorded aspirin 81 mg tablet,delayed 81 mg PO DAILY #30 tabs 11/22/22 release (Adult Low Dose Aspirin) peg 3350-electrolytes 236 240 ml PO Q10M bowel prep #4,000 mL 06/24/23 gram-22.74 gram-6.74 gram-5.86 gram solution (GaviLyte-G) Allergies Allergy/AdvReac Type Severity Reaction Status Date / Time No Known Allergies Allergy Verified 06/24/23 09:29 [facility] Disclaimer: The information contained in this section may have been updated after the patient was seen, as this information can be updated by other users. Medical History Hearing loss Epistaxis Impacted cerumen LISA (obstructive sleep apnea) mild to moderate positional LISA, CPAP compliance improved Hyperlactatemia HTN (hypertension) Active follow-up with [facility] cardiology CAD (coronary artery disease) Surgical History History of heart artery stent History of cardiac cath Family History Mother Heart attack Coronary artery disease Hypertension Father Heart attack Coronary artery disease Hypertension Stroke Social History Smoking Status: Never smoker alcohol intake: current alcohol intake frequency: holidays/special occasions only substance use type: denies use current occupational status: employed Travel in the last 8 weeks: None caffeine: Yes Have you lived/traveled outside US in past 30 days?: No Contact w/someone who lives/traveled outside US past 30 days?: No Exposure to someone with infectious disease in past 14 days?: No Do you have a fever (greater than 100.4 F or 38 C)?: No Have you tested positive for COVID-19: No Exposed to someone with COVID-19 in past 14 days?: No Do you have a sore throat?: No Do you have a cough?: No Do you have any weakness?: No Do you have any diarrhea?: No Are you experiencing any unusual bleeding?: No Do you have any muscle aches/pain?: Yes Do you have any abdominal pain?: No Are you experiencing loss of taste or smell?: No Other Medical History Have you received the Flu Vaccine for this season: No Have you received the Pneumonia Vaccine: No ROS Obtained: Yes Systems reviewed as appropriate & no additional complaints except as documented Constitutional Constitutional: Reports as per HPI Physical Exam General General appearance: alert Head Head exam: atraumatic and normocephalic Eye Eye exam: Present PERRL and EOMI ENT ENT exam: Present normal oropharynx and mucous membranes moist Neck Neck exam: Present normal inspection, full ROM and trachea midline Respiratory Respiratory exam: Present normal lung sounds bilaterally Cardiovascular Cardiovascular exam: Present regular rate, normal rhythm, normal heart sounds, +S1 and +S2 Abdominal Exam Abdominal exam: Present soft, tenderness (Right flank) and normal bowel sounds Extremities Exam Extremities exam: Present full ROM and normal capillary refill Back Exam Back exam: Present tenderness and CVA tenderness (R) Neurological Exam Neurological exam: Present alert and oriented X3 Skin Skin exam: Present warm, dry and intact Medical Decision Making Medical Records Screening: Per USPSTF and CDC recommendations, given the prevalence of disease in our region, it is our hospital?s policy to screen for HIV and viral Hepatitis for all patients aged 18 and over and those with ongoing risk factors. Leo Inquiry Pt receiving controlled substance: No Leo was queried for this patient: No Vital Signs: 05/23/24 19:36 05/23/24 21:44 Temperature 98.1 F Temperature Source Oral Pulse Rate 75 Pulse Rate [Right] 72 Respiratory Rate 18 12 Blood Pressure 148/82 H Blood Pressure [Right Arm] 160/95 H Blood Pressure Mean [Right Arm] 116 02 Sat by Pulse Oximetry 97 96 Oxygen Delivery Method Room Air Lab Data Lab Results 05/23/24 20:05: WBC 7.7, RBC 4.71, Hgb 14.7, Hct 41.8 L, MCV 88.7, MCH 31.2, MCHC 35.2, RDW 11.9, Plt Count 274, MPV 9.5, Neut % (Auto) 66.0, Lymph % (Auto) 24.6, [place] % (Auto) 7.2, Eos % (Auto) 1.4, Baso % (Auto) 0.5, Neut # (Auto) 5.1, Lymph # (Auto) 1.9, [place] # (Auto) 0.6, Eos # (Auto) 0.1, Baso # (Auto) 0.0, Sodium 142, Potassium 4.0, Chloride 107, Carbon Dioxide 32 H, Anion Gap 7.0, BUN 14, Creatinine 1.00, Estimated Creat Clear 110, Estimated GFR 77, Est GFR ( Amer) 93, Glucose 112 H, Calcium 9.2, Magnesium 1.9, Total Bilirubin 0.5, AST 50, ALT 33, Alkaline Phosphatase 125, Total Protein 7.7, Albumin 4.8, Globulin 2.9, Albumin/Globulin Ratio 1.7, Urine Color Yellow, Urine Appearance Clear, Urine pH 6.0, Ur Specific Bone Gap >= 1.030, Urine Protein Negative, Urine Glucose (UA) Negative, Urine Ketones Negative, Urine Blood Negative, Urine Nitrate Negative, Urine Bilirubin Negative, Urine Urobilinogen 0.2, Ur Leukocyte Esterase Negative, Urine RBC None, Urine WBC None, Ur Squamous Epith Cells None, Urine Bacteria None 05/23/24 20:05 05/23/24 20:05 Orders (Tests/Meds): ORDERS Category Date Time Status CT abdomen pelvis wo con Stat Cat Scan 05/23/24 19:43 Completed Chest XR -- portable [XR chest portable] Stat Exams 05/23/24 19:44 Completed CBC [Complete Blood Count Auto Diff] Stat Lab 05/23/24 20:05 Completed Comprehensive Metabolic Panel Stat Lab 05/23/24 20:05 Completed Magnesium Stat Lab 05/23/24 20:05 Completed Urinalysis-Acute [Urinalysis and Microscopic] Stat Lab 05/23/24 20:05 Completed Medical Decision Narrative: Insert review patient is a 58-year-old male presenting to the emergency department for evaluation of right sided flank pain. Patient is hemodynamically stable and nontoxic-appearing upon arrival, afebrile. Differential diagnosis includes kidney stone, muscle strain or sprain among others. Workup will be conducted with hematologic labs, specific imaging. Initial inventions include labs and CT scan. Initial workup reviewed by me hematologic labs are remarkable for nothing acute. Imaging has not resulted at this time. I have discussed this with the patient that we are waiting for imaging to come back. Imaging is back please see report. Patient safe for discharge home. Critical Care Critical Care Time Critical Care Time: No
[2024-05-23 20:10] LABS: Microscopic, Urine URINE MICROSCOPIC (MICROSCOPIC)
[2024-05-23 20:22] LABS: Appearance,Urine CLEAR (Clear); Bilirubin,Urine Negative (Negative); Blood, Urine Negative (Negative); Color,Urine YELLOW (Yellow); Glucose,Urine (UA) Negative (Negative); Ketones,Urine Negative (Negative); Leukocyte Esterase,Urine Negative (Negative); Nitrate,Urine Negative (Negative); Protein,Urine Negative (Negative); Specific Gravity, Urine >= 1.030 (1.005-1.030); Urobilinogen,Urine 0.2 EU/dl (0.2)
[2024-05-23 20:35] LABS: Albumin Level 4.8 g/dl (3.5-5.0); Chloride 107 mmol/L (98-107); Sodium 142 mmol/L (136-145)
[2024-05-23 20:38] LABS: Alanine Aminotransferase 33 U/L (12-78); Albumin/Globulin Ratio 1.7 (1.1-1.8); Alkaline Phosphatase 125 U/L (38-126); Aspartate Amino Transferase 50 U/L (17-59); Bilirubin,Total 0.5 mg/dl (0.2-1.3); Blood Urea Nitrogen 14 mg/dl (9-20); Calcium 9.2 mg/dl (8.4-10.2); Carbon Dioxide 32 mmol/L (22.0-30.0); Creatinine Clearance Estimated 110 mL/min (50-200); Estimated Glomerular Filt Rate 77 ml/min (>60); GFR (African American) 93 ML/MIN (>60); Globulin 2.9 g/dL (1.3-3.2); Glucose 112 mg/dl (74-100); Magnesium 1.9 mg/dl (1.6-2.3); Total Protein,Serum 7.7 g/dl (6.3-8.2)
[2024-05-23 21:01] LABS: Basophils % 0.5 % (0.1-2.0); Eosinophils # 0.1 K/mm3 (0.0-0.4); Eosinophils % 1.4 % (0.1-12.0); Hematocrit 41.8 % (42.0-52.0); Hemoglobin 14.7 g/dL (14.1-18.0); Lymphocytes # 1.9 K/mm3 (0.7-4.5); Lymphocytes % 24.6 % (10-50); Mean Corpuscular HGB Conc 35.2 g/dL (31.8-35.4); Mean Corpuscular Hemoglobin 31.2 pg (27.0-31.2); Mean Corpuscular Volume 88.7 fl (80-94); Mean Platelet Volume 9.5 fl (7.4-10.4); Monocytes # 0.6 K/mm3 (0.1-1.0); Monocytes % 7.2 % (1.7-9.3); Neutrophils # 5.1 K/mm3 (1.8-7.8); Platelet Count 274 K/mm3 (142-424); Red Blood Count 4.71 M/mm3 (4.60-6.20); Red Cell Distribution Width 11.9 % (11.5-17.5); White Blood Count 7.7 K/mm3 (4.8-10.8)
[2024-05-23 21:44] VITALS: BP 148/82; PULSE 75; RESP 12; O2SAT 96
[2024-05-23 22:27] VITALS: BP 148/82; PULSE 75; RESP 20; TEMP 36.8; O2SAT 98
== END 2024-05-23 22:28 | disposition home or self-care (01) ==
PROVIDERS: Nurse Practitioner; Emergency Provider Emergency Medicine; PCP Internal Medicine Adolescent Medicine
DX: M62.838 Other muscle spasm (principal); R10.31 Right lower quadrant pain
CPT/HCPCS: 71045; 74176; 80053; 81001; 83735; 85025; 99284

== ENCOUNTER 2024-06-06 09:09 | Outpatient (CLI) | payer BC, SELFPAY ==
--- NOTE | 2024-06-06 09:21 | XR_ITS ---
PROCEDURE INFORMATION: Exam: XR Left Shoulder Exam date and time: 06/06/2024 9:12 AM Age: 58 years old Clinical indication: Pain; Shoulder; Left TECHNIQUE: Imaging protocol: Radiologic exam of the left shoulder. Views: 2 or more views. COMPARISON: CR XR CHEST PORTABLE 05/23/2024 7:58 PM FINDINGS: Bones/joints: Moderate degenerative joint disease at left acromioclavicular joint. No acute fracture. Soft tissues: Normal. IMPRESSION: Moderate degenerative joint disease at left acromioclavicular joint. No acute fracture.
== END 2024-06-06 23:59 | disposition home or self-care (01) ==
LOC: RAD 09:13
PROVIDERS: PCP Internal Medicine Adolescent Medicine; Visit Provider Nurse Practitioner Family
DX: M25.512 Pain in left shoulder (principal)
CPT/HCPCS: 73030

== ENCOUNTER 2024-06-08 07:19 | Outpatient (CLI) | payer BC, SELFPAY ==
--- NOTE | 2024-06-08 07:37 | MR_ITS ---
FINAL REPORT CLINICAL HISTORY: LIVER MASS right sided back pain prior ct scan 19 ml prohance COMPARISON: CT abdomen pelvis dated 05/23/2024 FINDINGS: Multiplanar MR imaging of the abdomen was performed without and with contrast. There is a fairly well-circumscribed mass in the lateral left lobe of the liver. This mass measures 2.8 x 2.3 cm. Postcontrast images demonstrate nodular peripheral enhancement of this mass in the early phase imaging. There is central enhancement on the delayed imaging. This mass is favored to represent a hemangioma. There is no evidence of biliary ductal dilatation. The gallbladder has an unremarkable appearance. The spleen, pancreas, adrenal glands, and kidneys are unremarkable. No other mass or adenopathy is identified. No abnormal fluid collection is seen. IMPRESSION: 2.8 x 2.3 cm mass in the lateral segment of the left lobe of the liver consistent with a hemangioma. Reviewed, Interpreted and Dictated by Atilio Cordero MD Transcribed by Aura Nunez Authenticated and [facility]
[2024-06-08 07:58] LABS: Blood Urea Nitrogen 14 mg/dl (9-20); Estimated Glomerular Filt Rate 77 ml/min (>60); GFR (African American) 93 ML/MIN (>60)
[2024-06-08] MEDS: SODIUM CHLORIDE 0.9% 10ML SYR (RAD ONLY) 10 ML IV (09:04)
[2024-06-08] MEDS: GADOTERIDOL INJ 20ML SYRINGE 19 ML IV (09:04)
[2024-06-08] MEDS: 0.9 % SODIUM CHLORIDE 50 ML VIAL IV (09:04)
== END 2024-06-08 23:59 | disposition home or self-care (01) ==
LOC: RAD 07:20
PROVIDERS: PCP Internal Medicine Adolescent Medicine; Visit Provider Nurse Practitioner Family
DX: R16.0 Hepatomegaly, not elsewhere classified (principal)
CPT/HCPCS: 36415; 74183; 82565; 84520; A9576

== ENCOUNTER 2024-06-27 07:45 | Outpatient (CLI) | payer BC, SELFPAY ==
[2024-06-27 08:27] LABS: Chol/HDL Ratio 6.8 (1-3.5); Cholesterol 244 mg/dl (140-200); HDL Cholesterol 36 mg/dl (40-60); Triglycerides 191 mg/dl (30-150); VLDL Cholesterol 38 mg/dL (0-40)
[2024-06-27 08:38] LABS: Direct LDL Cholesterol 152.71 mg/dL (100-129)
[2024-06-27 08:45] LABS: Free T4 (Free Thyroxine) 0.76 ng/dl (0.78-2.19)
[2024-06-27 08:59] LABS: Thyroid Stimulating Hormone 1.03 uIU/mL (0.465-4.68)
[2024-06-27 09:05] LABS: Albumin Level 4.4 g/dl (3.5-5.0)
[2024-06-27 09:08] LABS: Alanine Aminotransferase 30 U/L (12-78); Alkaline Phosphatase 119 U/L (38-126); Aspartate Amino Transferase 33 U/L (17-59); Bilirubin,Direct 0.2 mg/dl (0.0-0.4); Bilirubin,Indirect 0.6 mg/dL (0.0-0.9); Bilirubin,Total 0.8 mg/dl (0.2-1.3); Bilirubin,Unconjugated 0.6 mg/dL (0.0-1.1); Total Protein,Serum 6.7 g/dl (6.3-8.2)
== END 2024-06-27 23:59 | disposition home or self-care (01) ==
LOC: LAB 07:47
PROVIDERS: PCP Internal Medicine Adolescent Medicine; Visit Provider Physician Assistant
DX: R53.83 Other fatigue (principal); G47.19 Other hypersomnia; I11.9 Hypertensive heart disease without heart failure; I25.10 Atherosclerotic heart disease of native coronary artery without angina pectoris
CPT/HCPCS: 36415; 80061; 80076; 84439; 84443